=== PATIENT | female | born 1950 | race Caucasian/White ===

== ENCOUNTER → 2023-10-31 07:06 | Outpatient (REF) | payer OTHER, SELFPAY | LOC: MRI 07:06 | PROVIDERS: ATTENDING PHYSICIAN Internal Medicine Pulmonary Disease; FAMILY PHYSICIAN Family Medicine | DX: S43.422A Sprain of left rotator cuff capsule, initial encounter (principal) | CPT/HCPCS: 73221 ==

== ENCOUNTER → 2024-01-27 12:55 | Outpatient (REF) | payer OTHER, SELFPAY | LOC: HWWDC 12:55 | PROVIDERS: ATTENDING PHYSICIAN Obstetrics & Gynecology | DX: Z12.31 Encounter for screening mammogram for malignant neoplasm of breast (principal) | CPT/HCPCS: 77063; 77067 ==

== ENCOUNTER → 2025-01-27 10:09 | Outpatient (REF) | payer OTHER, SELFPAY | LOC: HWWDC 10:09 | PROVIDERS: ATTENDING PHYSICIAN Family Medicine | DX: Z12.31 Encounter for screening mammogram for malignant neoplasm of breast (principal) | CPT/HCPCS: 77063; 77067 ==